=== PATIENT | male | born 1955 | race Caucasian/White ===

== ENCOUNTER 2020-10-29 06:57 | Inpatient (IN) | payer MEDICARE ==
--- NOTE | 2020-10-28 11:02 | NUR ---
CONFIRMED PT APPT FOR 10/29/20 -ELQUIS: PT STOPPED TODAY -PT CONFIMRED THAT HE WILL BE HERE OVERNIGHT -CONFIMRED THAT HE IS NOT TO EAT OR DRINK ANYTHING AFTER MIDNIGHT, TAKE ONLY BP MEDICATION MORNING OF PROCEDURE -PT CONFIRMED 0700 ARRIVAL TIME
[2020-10-29] VITALS (20 sets, daily range): BP systolic 118–164; BP diastolic 62–90; Ht 152.4 cm; Wt 86.4 kg
[~2020-10-29] VITALS: Ht 152.4 cm; Wt 86.4 kg
--- NOTE | ~2020-10-29 | HEMODYNAMI ---
PATIENT:AROLDO ISBELL MEDICAL RECORD: [id number] : 59 LOCATION:[facility] ADMISSION DATE: 10/29/20 Generatedon:111:05 Patient name: AROLDO ISBELL Patient #: [id number] SSN: DO B: 1955 Date of study: 10/29/2020 Page: Of Hemodynamic Procedure Report Patient Data Patient Demographics Procedure consent was obtained First Name: AROLDO Gender: Male Last Name: SUKHI : 1955 Middle Initial: JAYLIN Age: 65 year(s) Patient #: [id number] Race: Unknown Additional ID: [id number] Contact details Address: [facility] [address] State: [place] City: [place] Zip code: [address] Admission Admission Data Admission Date: 10/29/2020 Admission Time: 6:57 Procedure Procedure Types Cath Procedure Peripheral Cath Diagnostic Procedure Miscellaneous Procedure Description Procedure Date Procedure Date: 10/29/2020 Procedure Start Time: 9:55 Procedure Staff Name Function Kenny Majano MD Performing Physician Victor Manuel Collier RT Monitor KAMILLA SHUKLA RT Scrub Kathleen Lacy RN Nurse Juana Strong RN Nurse Procedure Data Cath Procedure Fluoroscopy Diagnostic fluoroscopy Total fluoroscopy Time: 8 time: 8 min min Diagnostic fluoroscopy Total fluoroscopy dose: 364 dose: 364 mGy mGy Contrast Material Contrast Material Type Amount (ml) Isovue 300 62 Diagnostic catheters Device Type Used For End Catheter Placement Merit Impress Mayorga 5FR. 100CM catheter ([id number]) Merit ULTRA BOLUS FLUSH 5Fr 90CM catheter ([id number]) Merit Impress Mayorga 5FR. 100CM catheter ([id number]) Procedure Medications Medication Administration Route Dosage Heparin Flush Bag added to field 4 bags (1000units/500ml NS) Lidocaine 1% added to field 20 Versed I.V. 1 mg Fentanyl I.V. 50 mcg Heparin Bolus I.V. 5000 units Heparin Bolus I.V. 2500 units Hemodynamics Rest Heart Rate: 75 (bpm) Snapshots Pre Cath Intra NCS Post Cath Vital Signs Time Heart Resp SPO2 etCO2 NIBP (mmHg) Rhythm Pain Sedation Rate (ipm) (%) (mmHg) Status Level (bpm) 9:42:14 72 14 100 35.3 171/91(150) NSR 0 (11) 10(A) , No pain 9:46:39 73 18 100 33 168/94(142) NSR 0 (11) 10(A) , No pain 9:51:03 73 16 100 25.5 171/88(132) NSR 0 (11) 10(A) , No pain 9:55:27 73 17 100 30 161/90(134) NSR 0 (11) 10(A) , No pain 9:59:51 70 10 98 35.3 164/83(133) NSR 0 (11) 10(A) , No pain 10:04:13 76 13 99 36 152/78(113) NSR 0 (11) 8(A) , No pain 10:08:34 73 18 98 35.3 158/79(123) NSR 0 (11) 8(A) , No pain 10:12:56 74 16 99 34.5 167/82(130) NSR 0 (11) 8(A) , No pain 10:17:20 73 18 99 34.5 163/86(130) NSR 0 (11) 8(A) , No pain 10:21:42 76 18 98 33.8 162/87(128) NSR 0 (11) 8(A) , No pain 10:26:06 70 19 98 30 168/86(136) NSR 0 (11) 8(A) , No pain 10:30:31 70 18 98 33.8 165/84(132) NSR 0 (11) 8(A) , No pain 10:34:49 73 15 99 36 161/89(132) NSR 0 (11) 9(A) , No pain 10:39:07 68 10 99 37.6 145/79(114) NSR 0 (11) 9(A) , No pain 10:43:23 72 16 99 34.5 156/88(114) NSR 0 (11) 9(A) , No pain 10:47:45 65 20 98 32.3 160/85(135) NSR 0 (11) 9(A) , No pain 10:52:07 65 12 99 39.7 159/91(144) NSR 0 (11) 9(A) , No pain 10:57:06 70 13 99 30.8 Measuring NSR 0 (11) 9(A) , No pain 10:57:12 68 10 99 38.3 158/90(136) NSR 0 (11) 9(A) , No pain 11:01:34 64 14 99 36 159/86(131) NSR 0 (11) 9(A) , No pain Medications Time Medication Route Dose Verified Delivered Reason Notes Effec tiveness by by 9:31:01 Heparin Flush added 4 Kenny Cox used for Bag to bags Gretel Majano procedure (1000units/500ml field MD NASSAR NS) 9:31:17 Lidocaine 1% added 20ml Kenny Cox used for to vial Gretel Majano procedure field MD NASSAR 9:57:19 Versed I.V. 1 mg Kenny Arias for Gretel Strong sedation RN 9:57:31 Fentanyl I.V. 50 Kenny Arias for mcg Gretel Strong sedation RN 10:00:24 Heparin Bolus I.V. 5000 Kenny Arias Per units Gretel hernandez MD RN 10:29:55 Heparin Bolus I.V. 2500 Kenny Arias Per units Gretel hernandez MD consultant nurse Log Time Note 9:28:58 Victor Manuel Collier RT (R) (CV) sent for patient. Start room use. 9:29:10 Time tracking: Regular hours (M-F 7:00 - 5:00) 9:29:36 Plan of Care:Hemodynamics will remain stable., Cardiac rhythm will remain stable., Comfort level will be maintained., Respiratory function will remain adequate., Patient/ family verbilizes understanding of procedure., Procedure tolerated without complication., Recovers from procedure without complications.. 9:29:43 Patient received from Outpatients to IR Alert and oriented. Tansferred to table in Supine position. 9:29:49 Signed procedure consent form obtained from patient. 9:30:01 Correct patient and procedure confirmed by team. 9:30:03 ECG and BP/O2 sat monitors applied to patient. 9:30:04 Full Disclosure recording started 9:30:04 - 9:30:10 H&P Date Dictated: 10/29/2020 H&P Addendum completed by physician on day of procedure. (MUST COMPLETE FOR ALL OUTPATIENTS). 9:30:12 Pre-procedure instructions explained to patient. 9:30:12 Pre-op teaching completed and patient verbalized understanding. 9:30:18 Use device set IR Diagnostic 9:30:21 TUBING Contrast Injection High Pressure ([id number]) opened to sterile field. 9:30:21 SHEN 260 wire ([id number]) opened to sterile field. 9:30:22 SHEATH 5FR [place] (LEW309) opened to sterile field. 9:30:22 Micropuncture VSI 4FR kit opened to sterile field. 9:30:23 INFLATOR BasixTOUCH (PV9552) opened to sterile field. 9:30:23 ACIST Syringe (14129) opened to sterile field. 9:30:23 ACIST Hand Control (43800) opened to sterile field. 9:30:24 ACIST Manifold (34969) opened to sterile field. 9:30:24 Bag Decanter (2002) opened to sterile field. 9:30:25 Sterile Angiographic Pack opened to sterile field. 9:30:25 Tegaderm 4 x 4 (1626W) opened to sterile field. 9:30:40 Family in waiting room. 9:30:44 Is patient on blood thinner?Yes 9:30:48 ACC The patient was administered the following blood thiners within the last 24 hours: ACCPlavix 9:30:50 Patient diabetic? Yes. 9:30:54 If diabetic: On Metformin? Yes 9:30:57 - 9:30:57 ----Pre-sedation anethsthesia assessment.---- 9:31:01 Heparin Flush Bag (1000units/500ml NS) 4 bags added to field was administered by Kenny Majano MD; used for procedure; Verbal order read back and verified. 9:31:02 Previous problem with sedation/anesthesia? No ? 9:31:04 Snore? Yes 9:31:06 Sleep apnea? No 9:31:08 Deviated septum? No 9:31:09 Opens mouth fully? Yes 9:31:10 Sticks out tongue? Yes 9:31:12 Airway obstruction? No ? 9:31:14 Dentures? No ? 9:31:17 Lidocaine 1% 20ml vial added to field was administered by Kenny siddiqui MD; used for procedure; Verbal order read back and verified. 9:33:28 CHOICE PT Extra Support J 300cm guide wire ([id number]) opened to steril e field. 9:40:55 Vital chart was started 9:40:56 Baseline sample Acquired. 9:44:34 Pre procedure: right dorsailis pedis pulse Doppler 9:44:39 Pre procedure: left posterior tibial pulse Doppler 9:45:16 IV patent on arrival in right hand with 0.9% NaCl at O. 9:45:18 Sharps counted by scrub and verified by R.N. 9:45:19 Alarms reviewed by R. N. 9:45:24 Right groin area was prepped with chlora-prep and draped in sterile fashion 9:48:15 A Shalini Masterson Mayorga 5FR. 100CM catheter ([id number]) was advanced over the wire and used for . 9:54:30 Physician arrived 9:54:30 --------ALL STOP TIME OUT------ 9:54:31 Final Timeout: patient, procedure, and site verified with staff and physician. All members of the team are in agreement. 9:54:34 Right groin site verified by team. 9:54:38 Fire Safety Assessment: A--An alcohol-based skin anteseptic being used preoperatively., C--Open oxygen or nitrous oxide is being used. 9:55:09 1) 90+ Normal kidney functon but urine findings or structural abnormalities or genetic trait point to kidney disease. 9:55:26 Maximum allowable contrast dose (3.7 X eGFR X 0.75)249.75 ml. 9:55:31 Sedation plan: IV Moderate Sedation Medication:Versed, Fentanyl 9:55:43 Procedure started. 9:55:46 Local anesthetic to right femoral artery with Lidocaine 1% by Kenny Majano MD.INITIAL ACCESS ONLY 9:57:15 SPIDER EMBOLIC PROTECTION DEVICE 4MM ([id number]) opened to sterile field. 9:57:19 Versed 1 mg I.V. was administered by Juana Strong RN; for sedation; Verbal order read back and verified. 9:57:31 Fentanyl 50 mcg I.V. was administered by Juana Strong RN; for sedation; Verbal order read back and verified. 10:00:24 Heparin Bolus 5000 units I.V. was administered by Juana Strong RN; Per physician; Verbal order read back and verified. 10:00:46 A Fobbler ULTRA BOLUS FLUSH 5Fr 90CM catheter ([id number]) was advanced over the wire and used for . 10:05:04 ROADRUNNER .035 260 glide wire (W24610) opened to sterile field. 10:11:40 A Fobbler Impress Mayorga 5FR. 100CM catheter ([id number]) was advanced over the wire and used for . 10:24:13 Inflate balloon Inflation number: 1 A VIATRAC 5 x 4 x 135 balloon ([id number]) was prepped and advanced across the Undefined1 , then inflated to 0 STEPHANIE for 0:00 (min:sec) . 10:24:18 EXPIRATION DATE CHECKED WITH TEAM AND OPENED TO TABLE 10:25:54 PROTEGE 7MM X 30MM X 135CM stent ([id number]) was deployed across Undefined1 . 10:28:07 Zero performed for pressure channel P1 10:28:14 Zero performed for pressure channel P1 10::42 Zero performed for pressure channel P1 10:29:55 Heparin Bolus 2500 units I.V. was administered by Juana Strong RN; Per physician; Verbal order read back and verified. 10:33:07 Inflate balloon Inflation number: 2 A VIATRAC 6 x 4 x 135 balloon ([id number]) was prepped and advanced across the Undefined1 , then inflated to 0 STEPHANIE for 0:00 (min:sec) . 10:43:25 PERCLOSE Proglide 6FR ( [id number]) opened to sterile field. 10:46:33 Procedure ended.(Physican Out) 10:47:06 Fluoroscopy time 08.00 minutes. 10:47:09 Fluoroscopy dose: 364 mGy 10:47:09 Flurop Dose total: 364 10:48:10 Insertion/operative site no bleeding no hematoma. 10:48:13 Post-op/insertion site Right Femoral artery dressed using a 4 x 4 and Tegaderm. 10:48:16 Post right femoral artery:stable 10:48:19 Post Procedure Pulses reassessed and unchanged 10:48:21 Post procedure instruction explained to patient.Patient verbalizes understanding. 10:48:22 Procedure and supply charges have been captured, reviewed, submitted an d are correct. 10:48:49 Contrast amount:Isovue 300 62ml. 11:04:43 Report given to ICU. 11:04:47 Patient transfered to ICU with Bed. 11:05:14 Vital chart was stopped Intervention Summary Intervention Notes Time ActionType Lesion and Equipment Action# Pressure Duration Attributes Used 10:24:13 Inflate Undefined1 VIATRAC 5 x 1 0 00:00 balloon 4 x 135 balloon ([id number]) 10:25:54 Deploy self Undefined1 PROTEGE 7MM 1 expanding X 30MM X stent 135CM stent ([id number]) 10:33:07 Inflate Undefined1 VIATRAC 6 x 2 0 00:00 balloon 4 x 135 balloon ([id number]) Device Usage Item Name Manufacture Quantity Catalog Number Hospital Part Current Minimal Lot# / Charge Number Stock Stock Serial# Code TUBING Merit 1 [id number] 516567 292792 5 Contrast Medical Injection High Pressure ([id number]) SHEN 260 wire Cook Medical 1 H20079 085968 646732 733672 5 [id number] ([id number]) SHEATH 5FR Terumo 1 PXD260 352161 667887 521305 5 [place] (YGZ323) Micropuncture VSI VASCULAR 1 7266V 637496 824540 5 VSI 4FR kit SOLUTIONS INFLATOR Merit 1 TP9138 944386 998462 329676 5 SendMe ([id number]) ACIST Syringe Acist 1 55506 841270 422462 288291 20 (04313) Medical Systems Inc ACIST Hand Acist 1 15241 245099 057936 357307 5 Control Medical (51884) Systems Inc ACIST Manifold Acist 1 19391 628224 189121 039545 5 (84298) Medical Systems Inc Bag Decanter Microtek 1 2001S 343733 82968 245564 5 (2001S) Medical Inc. Sterile Cardinal 1 [id number] 530822 707274 5 Angiographic Health Pack Tegaderm 4 x 4 3M 1 1626W 875225 010235 090806 5 (1626W) CHOICE PT [place] 1 [id number] 132219 755628 385680 5 [id number] Extra Support Scientific J 300cm guide wire ([id number]) Merit Impress Merit 2 [id number] 352290 975290 5 Mayorga 5FR. Medical 100CM catheter ([id number]) SPIDER EMBOLIC Medtronic 1 [id number] 552967 847183 5 PROTECTION DEVICE 5MM ([id number]) Merit ULTRA Merit 1 [id number] 754556 657586 5 BOLUS FLUSH Medical 5Fr 90CM catheter ([id number]) [facility] K05608 664552 655130 010591 5 .035 260 glide wire (S26249) VIATRAC 5 x 4 Jones 1 6346102-37 848816 583544 937489 5 x 135 balloon Vascular ([id number]) PROTEGE 7MM X Medtronic 1 SWWA-8-74-135 237681 371099 686430 5 [id number] 30MM X 135CM stent ([id number]) VIATRAC 6 x 4 Jones 1 4127384-43 806103 036103 579524 5 [id number] x 135 balloon Vascular ([id number]) PERCLOSE Jones 1 68872-253 816926 261048 010176 5 [id number] Proglide 6FR ( Vascular 9 71680473) Signature Audit Verner Stage Time Signature Unsigned Intra-Procedure 10/29/2020 Victor Manuel 11:05:10 AM [place] RT (R) (CV) [id number] [place] [address]
[2020-10-29 07:33] LABS: CALC OSMOLALITY 271 mosm/kg (275-300); CALCIUM 8.6 mg/dL (8.5-10.1); CHLORIDE - SERUM 100 mmol/L (98-107); CREATININE - SERUM 0.9 mg/dL (0.6-1.3); GLUCOSE 150 mg/dL (74-106); POTASSIUM - SERUM 4.2 mmol/L (3.5-5.1); SODIUM 135 mmol/L (136-145); UREA NITROGEN 11 mg/dL (7-18); eGFR NON AFRICAN AMERICAN > 90 mL/min (90-120)
[2020-10-29 08:11] LABS: BASOPHILS 0.8 % (0-2); EOSINOPHILS 4.2 % (0-7); HEMATOCRIT 40.2 % (42.0-54.0); HEMOGLOBIN 13.5 g/dL (13.5-17.5); IMMATURE GRANULOCYTES 0.2 % (0-5); LYMPHOCYTE ABS# 1.94 10x3/uL (1.32-3.57); LYMPHOCYTES 29.2 % (15-50); MCH 29.6 pg (26.0-34.0); MCHC 33.6 g/dL (31.0-37.0); MCV 88.2 fL (80.0-100.0); MEAN PLATELET VOLUME 10.5 fL (7.4-10.4); MONOCYTES 12.6 % (2-11); NEUTROPHIL ABS# 3.53 10x3/uL (1.78-5.38); PLATELET COUNT 224 10x3/uL (130-400); RBC 4.56 10x6/uL (4.20-6.10); RDW 12.8 % (11.5-14.5); WBC 6.7 10x3/uL (4.8-10.8)
[2020-10-29] MEDS ORDERED: TOPROL XL25 MG (08:40)
[2020-10-29] MEDS ORDERED: ELIQUIS5 MG PO (08:40)
[2020-10-29] MEDS ORDERED: ENTRESTO 97 MG1 EACH PO (08:41)
[2020-10-29] MEDS ORDERED: ZYLOPRIM100 MG PO (08:41)
[2020-10-29] MEDS ORDERED: LIPITOR40 MG (08:44)
[2020-10-29] MEDS ORDERED: PLAVIX75 MG PO (08:45)
[2020-10-29] MEDS ORDERED: ZYLOPRIM300 MG PO (08:46)
[2020-10-29] MEDS ORDERED: CARDURA4 MG PO (08:48)
[2020-10-29 08:52] LABS: APTT 30.9 SECONDS (22.8-39.4); INR 1.01 (0.85-1.17); PROTIME 12.3 SECONDS (11.6-15.0)
[2020-10-29] MEDS ORDERED: GLUCOPHAGE500 MG PO (09:02)
--- NOTE | 2020-10-29 09:16 | NUR ---
9380 SOPHIA FOWLER RN NOTIFIED THAT PT TOOK PLAVIX YESTERDAY. THE ORDERS HAD PT TO HOLD ELIQUIS AND PT STATES THAT HIS LAST DOSE WAS ON 10/27/20. SOPHIA WILL RELAY THIS INFORMATION TO DR WRIGHT.
--- NOTE | 2020-10-29 11:15 | NUR ---
received pt to icu3 via strecther from IR, pt alert and oriented, denies pain at this time, pt placed on surveillance monitor, SR noted, dressing noted to right groin soft and nontender, pedal pulses present, call light in reach, will monitor
--- NOTE | 2020-10-29 14:30 | NUR ---
resting comfortable, daughter at bedside, no needs voiced, will alekseyior
--- NOTE | 2020-10-29 17:52 | NUR ---
LAYING IN BED RESTING COMFORTABLE, NO NEEDS VOICED, CALL LIGHT IN REACH
[2020-10-30] VITALS (7 sets, daily range): BP systolic 92–173; BP diastolic 73–90
--- NOTE | 2020-10-30 07:30 | NUR ---
BREAKFAST TRAY SERVED, SITTING UP EATING, DENIES PAIN OR NEEDS AT THIS TIME, WILL MONITOR
--- NOTE | 2020-10-30 08:40 | NUR ---
PIV DC'D AT THIS TIME
--- NOTE | 2020-10-30 08:50 | NUR ---
PT DISCHARGED HOME WITH FRIEND PRESENT, DISCHARGE INSTRUCTIONS GIVEN AND MEDICATIONS EXPLAINED, PT VERBALAZIES UNDERSTANDING, RIGHT GROIN SOFT AND NONTENDER, PEDAL PULSES PRESENT
== END 2020-10-30 08:50 | disposition home or self-care (01) | DRG 36 ==
LOC: D.SP 06:57 → EDSTATUS 09:30 → D.RAD 09:30 → D.ICU 11:32 → D.SP 11:35 → D.ICU 11:38
PROVIDERS: ADMIT Radiology Diagnostic Radiology; ATTEND Radiology Diagnostic Radiology
PROC: 037H3DZ Dilation of Right Common Carotid Artery with Intraluminal Device, Percutaneous Approach (ICD-10-PCS; principal; 2020-10-29 09:30)
DX: I65.21 Occlusion and stenosis of right carotid artery (principal)